=== PATIENT | male | born 1950 | race Caucasian/White ===

== ENCOUNTER 2024-06-14 07:30 | Day surgery (SDC) | payer MEDICARE, BC, SELFPAY ==
[2024-06-10 13:35] VITALS: BMI 31.3
--- NOTE | 2024-06-10 14:10 | PTCARENOTE ---
Patients 08/10 ECG abnormal- reviewed by Dr. Long- no interventions indicated.
[2024-06-10 14:12] VITALS: BMI 31.3
[2024-06-10 14:21] LABS: Hematocrit 41.8 % (39.0-52.0); Hemoglobin 14.4 g/dL (13.0-18.0); Mean Corp Hgb Conc. 34.4 g/dL (33.0-37.0); Mean Corpuscular Hgb 31.8 pg (27.0-31.0); Mean Corpuscular Volume 92.3 fL (80.0-94.0); Mean Platelet Volume 10.7 fL (7.4-10.4); Platelet Count 170 10^3/uL (130-400); Red Blood Cell Count 4.53 10^6/uL (4.70-6.10); Red Cell Dist. Width 13.3 % (11.5-14.5); White Blood Cell Count 5.7 10^3/uL (4.8-10.8)
[2024-06-10 14:42] LABS: ALT (SGPT) 39 U/L (0-50); AST (SGOT) 26 U/L (17-59); Albumin 4.1 g/dl (3.5-5.0); Alkaline Phosphatase 51 U/L (38-126); Blood Urea Nitrogen 9 mg/dl (9-20); Calcium 9.3 mg/dl (8.4-10.2); Carbon Dioxide 20 mmol/L (22-30); Chloride 110 mmol/L (98-107); Estimated Creatinine Clearance 123 ml/min; Glucose 140 mg/dl (70-99); Sodium 145 mmol/L (135-145); Total Bilirubin 0.4 mg/dl (0.2-1.3); Total Protein 6.1 g/dl (6.3-8.2); eGFR > 60.00
[2024-06-14 08:01] VITALS: BMI 31.3
[2024-06-14 08:16] VITALS: BMI 31.3
[2024-06-14 08:22] VITALS: BP 122/79
[2024-06-14] MEDS: CELEBREX 200 MG PO (08:32)
[2024-06-14] MEDS: TYLENOL 1000 MG PO (08:32)
[2024-06-14] MEDS: LYRICA 150 MG PO (08:34)
--- NOTE | 2024-06-14 08:49 | PTCARENOTE ---
IVF capped due to IV fluid shortage.
--- NOTE | 2024-06-14 10:07 | PTCARENOTE ---
Patient took Ozempic yesterday 06/13/24 at 0800. Surgery cancelled. Will monitor patient.
== END 2024-06-14 16:30 | disposition home or self-care (01) ==
LOC: SDS 07:30
PROVIDERS: ATTENDING PHYSICIAN Orthopaedic Surgery; FAMILY PHYSICIAN Nurse Practitioner
DX: M51.16 Intervertebral disc disorders with radiculopathy, lumbar region (principal); M48.062 Spinal stenosis, lumbar region with neurogenic claudication; Z53.09 Procedure and treatment not carried out because of other contraindication
CPT/HCPCS: 22630; 36415; 80053; 85027; 87070; 93005

== ENCOUNTER → 2024-09-24 08:13 | Outpatient (REF) | payer MEDICARE, SELFPAY | LOC: HWRAD 08:13 | PROVIDERS: ATTENDING PHYSICIAN Orthopaedic Surgery Adult Reconstructive Orthopaedic Surgery; FAMILY PHYSICIAN Nurse Practitioner | DX: Z96.652 Presence of left artificial knee joint (principal) | CPT/HCPCS: 73700 ==

== ENCOUNTER → 2024-11-08 11:20 | Outpatient (REF) | payer MEDICARE, SELFPAY | LOC: HWRAD 11:20 | PROVIDERS: ATTENDING PHYSICIAN Nurse Practitioner | DX: M54.2 Cervicalgia (principal) | CPT/HCPCS: 72052 ==

== ENCOUNTER 2025-01-25 13:00 | Emergency (ER) | payer MEDICARE, BC, SELFPAY ==
[2025-01-25 13:09] VITALS: BP 153/102
--- NOTE | 2025-01-25 14:12 | ED.GENMED ---
History of Present Illness
General
Chief Complaint: Head Injury
Source: patient
Exam Limitations: none
Time Seen by Provider: 01/25/25 14:04
History of Present Illness
History of Present Illness:
74 year old male presents with head injury and dizziness. He had too much to drink 3 nights ago and fell twice hitting his head. He also complains of neck pain. He was at physical therapy for his lower back today and he laid down he developed
dizziness eventually talk to his family doctor about and was sent here for further evaluation. No chest pain or shortness of breath. No double vision or blurry vision. No loss of vision. No anticoagulants. No other pains at this time
Past History
Past History
ED Past Medical History: Hypercholesterolemia
ED Past Surgical History: None
Social History
Tobacco: Non-smoker
Alcohol: None
Drug: None
Living: with family
Phy Exam
Physical Exam
Physical Exam:
General: Well-appearing male no acute respiratory distress
HEENT: Normocephalic no obvious scalp abrasion or hematoma mild nystagmus noted in horizontal direction
TMs normal
Heart: Regular rate and rhythm no murmurs
Lungs: Clear no wheeze
Musculoskeletal exam: Mild diffuse paraspinous tenderness of the cervical spine
Neurologic: Alert and oriented normal gait good strength to the upper and lower extremities nystagmus noted above finger-nose intact
Course
Orders/Labs/Results
Orders:
Orders
01/25/25 13:20
CT Head W/o Iv Contrast Urgent
Comment:
Reason For Exam: Multiple falls w/ + head strike
01/25/25 14:12
CT Cervical Spine W/o Iv Contr Urgent
Comment:
Reason For Exam: fall
Vital Signs
Initial and Last Documented VS:
Initial Vital Signs
Temp Pulse Resp BP Pulse Ox
98.3 F 81 16 153/102 95
01/25/25 13:09 01/25/25 13:09 01/25/25 13:09 01/25/25 13:09 01/25/25 13:09
Last Documented Vital Signs
Temp Pulse Resp BP Pulse Ox
98.3 F 81 16 153/102 95
01/25/25 13:09 01/25/25 13:09 01/25/25 13:09 01/25/25 13:09 01/25/25 13:09
MDM/Problems Addressed
Differential Diagnosis Includes:
Fall with head strike. Now with slight headache and dizziness with neck pain. Consider concussion versus vertigo versus intracranial injury or cervical spine injury. CT of the head and cervical spine pending
*Critical Care Note
Total Time (30-74mins, 75-104mins- exclusive of procedures): Not Applicable
Update Note
Update Note:
CT of head and cervical spine negative for acute finding. I suspect mild concussion with vertigo like symptoms. Vertigo is positional and is fatigable. No cerebellar signs on exam. Will recommend meclizine and continued therapy. Stable for
discharge
ED Attending Note
-
Portions of this chart may have been created with voice recognition software.� Occasional wrong word or��sound alike� substitutions may have occurred due to the inherent limitations of voice recognition software.
Discharge Plan
Departure
Patient Disposition: Home (Routine Discharge)
Date of Disposition: 01/25/25
Time of Disposition: 15:42
Patient with high blood pressure during this ER visit?: No
Discharge Problem:
Vertigo
Instructions: Concussion, Adult (DC)
Prescriptions:
No Action
rosuvastatin [Crestor] 40 MG tablet
80 mg PO Daily
multivitamin Tablet
1 tab PO DAILY
Ozempic
DAILY
Rx Instructions:
Patient does not know dose.
Referrals:
UNKNOWN - PT DOES,NOT KNOW [Family Provider]
Activity Restrictions/Additional Instructions:
Use meclizine if needed for dizziness. Rest. Return here if worse otherwise follow-up with your physical therapist
Interventions
Interventions:
*Risk Screen - Suicide Last Done: 01/25/25 13:09
*General Assessment Last Done: 01/25/25 14:49
*Neglect/Abuse Screening Last Done: 01/25/25 14:49
*ED- Fall Risk Assessment Last Done: 01/25/25 14:49
*ED COVID-19 Vaccine History Last Done: 01/25/25 14:51
ED- Neurological Assessment Last Done: 01/25/25 14:49
ED-Skin Assessment Last Done: 01/25/25 14:49
Discharge Date and Time
Print Language: WALLISIAN
--- NOTE | 2025-01-25 15:55 | EDRN ---
Reviewed discharge instructions with patient. Verbalized understanding. Ambulated with steady gait to the lobby.
[2025-01-25 15:56] VITALS: BP 147/92
== END 2025-01-25 15:57 | disposition home or self-care (01) ==
LOC: EMR 13:00
PROVIDERS: EMERGENCY PHYSICIAN Emergency Medicine
DX: R42 Dizziness and giddiness (principal); M54.2 Cervicalgia; E78.00 Pure hypercholesterolemia, unspecified
CPT/HCPCS: 99284; 70450; 72125

== ENCOUNTER → 2025-07-12 10:10 | Outpatient (REF) | payer MEDICARE, BC, SELFPAY | LOC: RAD 10:10 | DX: K21.9 Gastro-esophageal reflux disease without esophagitis (principal) | CPT/HCPCS: 74246 ==

== ENCOUNTER → 2025-07-29 06:43 | Outpatient (REF) | payer MEDICARE, BC, SELFPAY | LOC: HWRAD 06:43 | PROVIDERS: ATTENDING PHYSICIAN Internal Medicine Gastroenterology | DX: K30 Functional dyspepsia (principal) | CPT/HCPCS: 76700 ==